=== PATIENT | male | born 1990 | race Caucasian/White ===

== ENCOUNTER 2016-12-02 17:10 | Emergency (ER) | payer MEDICAID ==
[~2016-12-02] VITALS: Ht 182.9 cm; Wt 136.5 kg
[2016-12-02 21:07] VITALS: BP 143/89
== END 2016-12-02 22:03 | disposition left against medical advice (07) ==
LOC: ED 17:10
DX: Z53.21 Procedure and treatment not carried out due to patient leaving prior to being seen by health care provider (principal)

== ENCOUNTER 2016-12-03 09:30 | Emergency (ER) | payer MEDICAID ==
[~2016-12-03] VITALS: Ht 182.9 cm; Wt 137.9 kg
[2016-12-03 09:36] VITALS: BP 136/84
== END 2016-12-03 10:55 | disposition home or self-care (01) ==
LOC: ED 09:30
DX: L02.415 Cutaneous abscess of right lower limb (principal)
CPT/HCPCS: J1885; J2001

== ENCOUNTER 2016-12-06 10:35 | Emergency (ER) | payer MEDICAID ==
[~2016-12-06] VITALS: Ht 182.9 cm; Wt 139.0 kg
[2016-12-06 10:48] VITALS: BP 139/94
== END 2016-12-06 11:27 | disposition home or self-care (01) ==
LOC: ED 10:35
DX: L02.415 Cutaneous abscess of right lower limb (principal)

== ENCOUNTER 2019-04-23 14:41 | Emergency (ER) | payer MEDICAID ==
[~2019-04-23] VITALS: Ht 182.9 cm; Wt 126.6 kg
[2019-04-23 14:49] VITALS: Ht 182.9 cm; Wt 126.6 kg
[2019-04-23 17:36] VITALS: BP 137/88
== END 2019-04-23 17:36 | disposition home or self-care (01) ==
LOC: ED 14:41
DX: H61.21 Impacted cerumen, right ear (principal)